=== PATIENT | female | born 1950 | race Caucasian/White ===

== ENCOUNTER → 2016-07-10 | Outpatient (CLI) | payer OTHER | LOC: FIMAGING 09:04 | DX: Z12.31 Encounter for screening mammogram for malignant neoplasm of breast (principal) | CPT/HCPCS: G0202 ==

== ENCOUNTER → 2017-08-03 | Outpatient (CLI) | payer OTHER | LOC: FIMAGING 09:50 | PROVIDERS: ATTEND Internal Medicine | DX: Z12.31 Encounter for screening mammogram for malignant neoplasm of breast (principal) ==

== ENCOUNTER → 2017-08-10 | Outpatient (CLI) | payer OTHER | LOC: FIMAGING 14:29 | PROVIDERS: ATTEND Internal Medicine | DX: R92.0 Mammographic microcalcification found on diagnostic imaging of breast (principal) ==

== ENCOUNTER → 2017-08-22 | Outpatient (CLI) | payer OTHER ==
[~2017-08-22] MED LIST: BUPIVACAINE 0.5% 10 ML SDV ONE; LIDOCAINE 1% 300 MG/30 ML SDV ONE; THROMBIN (BOVINE) 5,000 UNIT VIAL TP ONE
== END ==
LOC: FIMAGING 07:17
PROVIDERS: ATTEND Internal Medicine
PROC: 0HBU3ZX Excision of Left Breast, Percutaneous Approach, Diagnostic (ICD-10-PCS; principal; 2017-08-22)
DX: N60.12 Diffuse cystic mastopathy of left breast (principal)

== ENCOUNTER → 2017-11-22 | Outpatient (CLI) | payer OTHER | LOC: FIMAGING 08:52 | PROVIDERS: ATTEND Internal Medicine | DX: N63.20 Unspecified lump in the left breast, unspecified quadrant (principal) ==

== ENCOUNTER → 2017-11-29 | Day surgery (SDC) | payer OTHER ==
[~2017-11-29] MED LIST changes: -BUPIVACAINE 0.5% 10 ML SDV ONE; +BUPIVACAINE 0.5% 30 ML SDV ONE
== END | disposition home or self-care (01) ==
LOC: FIMAGING 07:26
PROVIDERS: ATTEND Internal Medicine
PROC: 0HBU3ZX Excision of Left Breast, Percutaneous Approach, Diagnostic (ICD-10-PCS; principal; 2017-11-29)
DX: C50.412 Malignant neoplasm of upper-outer quadrant of left female breast (principal); R92.0 Mammographic microcalcification found on diagnostic imaging of breast

== ENCOUNTER → 2017-12-05 | Outpatient (CLI) | payer OTHER ==
[~2017-12-05] MED LIST changes: -BUPIVACAINE 0.5% 30 ML SDV ONE; +GADOBUTROL 10 ML VIAL IVP ONE; -LIDOCAINE 1% 300 MG/30 ML SDV ONE; -THROMBIN (BOVINE) 5,000 UNIT VIAL TP ONE
== END ==
LOC: FIMAGING 08:07
PROVIDERS: ATTEND Surgery
DX: C50.412 Malignant neoplasm of upper-outer quadrant of left female breast (principal)
CPT/HCPCS: 0159T; A9585; C8908

== ENCOUNTER 2017-12-12 06:40 | Day surgery (SDC) | payer OTHER ==
[2017-12-12] MEDS ORDERED: METHYLENE BLUE 0.5% 50 MG/10 ML AMP ONE (06:48)
[2017-12-12] MEDS ORDERED: BUPIVACAINE/EPI 0.5% 30 ML SDV ONE (06:48)
[2017-12-12] MEDS ORDERED: ceFAZolin 2 GM/DEXTROSE 100 ML IV ONE (07:05)
[2017-12-12] MEDS ORDERED: LIDOCAINE 1% 2 ML INJ ID PRN (07:06)
[2017-12-12] MEDS ORDERED: LR 1,000 ML IV ONE (07:06)
[2017-12-12] MEDS ORDERED: LIDOCAINE 1% 300 MG/30 ML SDV ONE (07:57)
--- NOTE | 2017-12-12 08:34 | PDHPUP ---
History & Physical Update H&P update statement: This history and physical update is based on an assessment of the patient which was completed after admission or registration (within 24 hours), but prior to the surgery/procedure. H&P update: H&P reviewed & patient examined, changes noted (L breast CA on office biopsy.)
--- NOTE | 2017-12-12 08:52 | PDANEPAE ---
ANE History of Present Illness here for L breast lumpectomy for breast CA ANE Past Medical History - Cardiovascular History Hx Hypertension: Yes Hx Arrhythmias: No Hx Chest Pain: No Hx Coronary Artery / Peripheral Vascular Disease: No Hx CHF / Valvular Disease: No Hx Palpitations: No Cardiovascular History Comment: states 'they thought I had a heart attack a few years ago" - Pulmonary History Hx COPD: No Hx Asthma/Reactive Airway Disease: No Hx Recent Upper Respiratory Infection: No Hx Oxygen in Use at Home: No Hx Sleep Apnea: Yes Sleep Apnea Screening Result - Last Documented: Positive Pulmonary History Comment: has history of SAMMY but does not use any device; did use oxygen at one point at home but no longer since weight loss - Neurologic History Hx Cerebrovascular Accident: No Hx Seizures: No Hx Dementia: No - Endocrine History Hx Diabetes: No - Renal History Hx Renal Disorders: No - Liver History Hx Hepatic Disorders: No - Neurological & Psychiatric Hx Hx Neurological and Psychiatric Disorders: Yes Neurological / Psychiatric History Comment: bipolar, depression, anxiety - Cancer History Hx Cancer: Yes Cancer History Comment: left breast - Congenital Disorder History Hx Congenital Disorders: No - GI History GERD: no Hx Gastrointestinal Disorders: No - Chronic Pain History Chronic Pain: No - Surgical History Prior Surgeries: bilat GUANAKITO. rotator cuff right. . appy. gastric bypass. bilat osteotomy of jaw. lateral relase on right knee ANE Review of Systems Review of systems is: negative Review of Systems: - Exercise capacity Exercise capacity: >=4 METS METS (RN): 4 METS ANE Patient History - Allergies Allergies/Adverse Reactions: No Known Allergies Allergy (Verified 12/07/17 12:56) - Home Medications Home medications: home medication list seen and reviewed Home Medications: Propranolol HCl [Inderal 10mg (RX)] 07/04/12 [Last Taken 2 Weeks Ago ~11/28/17] Abilify 10 mg (*) 10 mg 12/07/17 [Last Taken 12/11/17] Bupropion HCl 100 mg DAILY 12/07/17 [Last Taken 12/11/17] Losartan Potassium 50 mg DAILY 12/07/17 [Last Taken 12/11/17] Seroquel 300mg (*) 300 mg 12/07/17 [Last Taken 12/11/17] Vitamin B12 12/07/17 [Last Taken 2 Days Ago ~12/10/17] Propranolol HCl 60 mg 12/12/17 [Last Taken 12/11/17] Propranolol HCl 80 mg 12/12/17 [Last Taken 12/11/17] - NPO status NPO Status: no food or drink >8 hours NPO Since - Liquids (Date): 12/11/17 NPO Since - Liquids (Time): 21:00 NPO Since - Solids (Date): 12/11/17 NPO Since - Solids (Time): 19:00 - Smoking Hx Smoking Status: Former smoker - Family Anes Hx Family Hx Anesthesia Complications: none ANE Labs/Vital Signs - Vital Signs Vital Signs: reviewed preoperatively; see RN documention for details Blood Pressure: 98/81 Heart Rate: 73 Respiratory Rate: 12 O2 Sat (%): 91 Height: 160.02 cm Weight: 86.636 kg ANE Physical Exam - Airway Neck exam: FROM Mallampati Score: Class 1 - Pulmonary Pulmonary: no respiratory distress - Cardiovascular Cardiovascular: regular rate and rhythym - ASA Status ASA Status: II ANE Anesthesia Plan Anesthesia Plan: GA w LMA
[2017-12-12] MEDS ORDERED: DEXAMETHASONE 4 MG/ML VIAL IVP PRN (09:07)
[2017-12-12] MEDS ORDERED: LR 500 ML IV PRN (09:07)
[2017-12-12] MEDS ORDERED: fentaNYL 100 MCG/2 ML INJ IVP PRN (09:07)
[2017-12-12] MEDS ORDERED: NALOXONE HCL 0.4 MG/ML INJ IVP PRN (09:07)
[2017-12-12] MEDS ORDERED: HYDROmorphONE/DILAUDID 2 MG/ML INJ IVP PRN (09:07)
[2017-12-12] MEDS ORDERED: oxyCODONE IR 5 MG TAB PO PRN (09:07)
[2017-12-12] MEDS ORDERED: MIDAZOLAM 2 MG/2 ML VIAL IVP ONE (09:07)
[2017-12-12] MEDS ORDERED: ONDANSETRON 4 MG/2 ML VIAL IVP PRN (09:07)
[2017-12-12] MEDS ORDERED: PROPOFOL/EMULSION 500 MG/50 ML BOTTLE IV ONE (09:54)
[2017-12-12] MEDS ORDERED: fentaNYL 100 MCG/2 ML INJ ONE ×3 (09:54→10:57)
[2017-12-12] MEDS ORDERED: PHENYLEPHRINE HCL 100 MCG/ML SYR ONE (09:56)
--- NOTE | 2017-12-12 12:18 | POSTOPPROG ---
Post Op Note Date of Operation: 12/12/17 Surgeon: Brandon Hernandez Wharf Labourer: Anibal Cherry Anesthesiologist: Dr. Mejia Anesthesia: LMA Pre-op Diagnosis: L breast CA Post-op Diagnosis: same Procedure: L ALND, NL lumpectomy Findings: No sentinel node identified Inf/Abcess present in the surg proc area at time of surgery?: No EBL: Minimal
[2017-12-12] MEDS ORDERED: HYDROmorphONE/DILAUDID 2 MG/ML INJ ONE (12:41)
--- NOTE | 2017-12-12 13:17 | GOP ---
DATE OF OPERATION: 12/12/2017 SURGEON: Juan Manuel Hernandez MD COIL REWIND MACHINE OPERATOR: Virgilio Cherry CST, whose presence was requested by me and medically necessary for t he safe and timely completion of the case. ANESTHESIA: Laryngeal mask anesthesia. ANESTHESIOLOGIST: Dr. Mejia PREOPERATIVE DIAGNOSIS: Left breast cancer. POSTOPERATIVE DIAGNOSIS: Left breast cancer. PROCEDURE PERFORMED: 1. Attempted left sentinel lymph node biopsy. 2. Left axillary node dissection. 3. Left needle localization lumpectomy. FINDINGS: No sentinel node was identified after careful examination. There were no palpable lymph n odes in the axilla. Mammography confirmed lumpectomy specimen. ESTIMATED BLOOD LOSS: 20 cc. INDICATIONS: She is a 67-year-old female with a history of breast cancer on core biopsy. MRI showed no other lesions. Risks and benefits of the procedure were discussed with the patient and her famil y. Her questions were answered and she wished to proceed. DESCRIPTION OF PROCEDURE: Patient in supine position. After induction of adequate laryngeal mask an esthesia, patient was prepped and draped in standard surgical fashion. The Neoprobe was used to assess the axilla. No significant hot spot was identified in the axilla or along the internal mammary chain. The left axilla was anesthetized with 0.5% Marcaine and an oblique incision was made with #15 blade. This was carried down to the subcu tissue with Bovie cautery and blunt dissection. The axillary fat pad was entered and the area again examined thoroughly with the N eoprobe. No distinct node was noted using the gamma probe. Careful dissection was then begun of the axillary contents. The long thoracic and thoracodorsal nerv es were identified and preserved throughout their length. Dissection was then carried superiorly to the axillary vein. Once again, the Neoprobe was utilized and no sentinel node could be identified. Decision was made at that point to proceed with full axillary dissection. The tissue between these 2 nerves was taken down to the chest wall. Apparent lymphatics were clipped and divided. The contents were then removed and again assessed with the Neoprobe. No sentinel node could be identified. The Neoprobe was again turned to the axillary bed and no other lesions could b e identified with the Neoprobe placed here. The specimen was then sent for permanent section. A ANJALI drain was placed in a separate stab incision and secured using 3-0 nylon in interrupted fashion. Subcu tissue was approximated layers using 3-0 Vicryl in interrupted fashion. The skin was closed with 4-0 Monocryl in a subcuticular stitch. Wound was sterilely dressed and segregated for the remai nder of the procedure. An incision site was chosen medial to the needle entry site. The area was anesthetized with 0.5% Mar beatriz for local anesthesia. The incision was made with #15 blade and carried down to subcutaneous ti ssue with electrocautery and blunt dissection. After palpation of the needle site and hematoma area, the dissection was commenced around this area using sharp dissection only. The needle was then adva nced over the wire carefully and removed. The wire itself was delivered into the incision itself. T he specimen was marked using standard paint. It was then sent to mammography, which confirmed placem ent of the wire in the biopsy site. The area was thoroughly irrigated and aspirated. Subcutaneous tissue was reapproximated in layers us ing 3-0 Vicryl in interrupted fashion. Skin was closed with 4-0 Monocryl in a subcuticular stitch. Wound is sterilely dressed. The patient is extubated and taken to PACU in stable condition. COMPLICATION: None. DRAINS: Include 1 ANJALI drain in the axillary bed. /[id number]/MODL
[2017-12-12] MEDS ORDERED: HYDROCODONE/APAP 5/325 TAB ONE ×2 (13:33→16:14)
[2017-12-12] MEDS: HYDROCODONE/APAP 5/325 TAB PO PRN ×2 (13:34→16:17)
--- NOTE | 2017-12-12 14:43 | POSTANESTH ---
Post Anesthetic Evaluation Cardiovascular Status: Normal, Stable Respiratory Status: Normal, Stable Level of Consciousness/Mental Status: Can Participate in Eval Pain Control: Adequate, Prn Tx Ordered Nausea/Vomiting Control: Adequate, Prn Tx Ordered Complications Possibly Related to Anesthesia: None Noted
--- NOTE | 2017-12-12 15:11 | PDHOMEO2F ---
Home Oxygen Face to Face Home Orders: I certify that a physician or a nurse practitioner or physician's physician's assistant has had a [id number] encounter with this patient on the date of this order due to the diagnosis listed, which relates to the primary reason the patient requires home oxygen. Alternative treatments have been tried, or considered, and deemed ineffective. It is anticipated that supplemental oxygen will result in improvement with treatment. Home oxygen qualifying diagnosis: post operative hypoxemia SpO2 on room air (%): 78 Frequency of home oxygen needed: continuous Home oxygen liters per minute: 2 Home oxygen delivery device: nasal cannula Concentrator: Yes E-tanks for mobility and back up: Yes If ordering portable O2, is the patient mobile in the home?: Yes I certify that, based on these findings, the home oxygen is medically necessary for this patient for the following length of time. Length of time home oxygen needed: 1 week Home Oxygen Comment: or until oxygen saturations on pulse ox are higher than 90%
[2017-12-12 16:12] VITALS: BP 123/78
== END 2017-12-12 18:00 | disposition home or self-care (01) ==
LOC: FIMAGING 06:40
PROVIDERS: ATTEND Surgery
DX: C50.412 Malignant neoplasm of upper-outer quadrant of left female breast (principal); Z17.0 Estrogen receptor positive status [ER+]
CPT/HCPCS: 19301; 38500; 76098; A9520; J0690; J1170; J2250; J2370; J2704; J3010; Q9968

== ENCOUNTER → 2018-04-25 | Outpatient (CLI) | payer OTHER | LOC: FIMAGING 09:06 | PROVIDERS: ATTEND Nurse Practitioner | DX: Z13.820 Encounter for screening for osteoporosis (principal); M81.0 Age-related osteoporosis without current pathological fracture; Z78.0 Asymptomatic menopausal state ==

== ENCOUNTER → 2018-07-25 | Outpatient (CLI) | payer OTHER | LOC: FIMAGING 14:04 | PROVIDERS: ATTEND Internal Medicine Hematology & Oncology | DX: Z08 Encounter for follow-up examination after completed treatment for malignant neoplasm (principal); Z85.3 Personal history of malignant neoplasm of breast ==